=== PATIENT | male | born 1995 ===

== ENCOUNTER 2022-06-04 19:59 | Observation (INO) | payer OTHER ==
[~2022-06-04] VITALS: Ht 185.4 cm; Wt 103.2 kg
[2022-06-04 21:13] LABS: BASO # 0.1 K/mm3 (0.0-0.2); EOS # 0.1 K/mm3 (0.0-0.7); EOS % 1.2 % (0.0-4.0); GRAN # 6.2 K/mm3 (1.4-6.5); GRAN % 64.4 % (42.2-75.2); HEMATOCRIT 43.7 % (42.0-52.0); HEMOGLOBIN 15.4 g/dl (13.5-18.0); LYMPH # 2.6 K/mm3 (1.2-3.4); LYMPH % 27.3 % (20.0-51.0); MEAN CELL VOLUME 85 fl (80.0-100.0); MEAN CORPUSCULAR HEMOGLOBIN 30 pg (27-31); MEAN CORPUSCULAR HGB CONC 35 g/dl (33.0-37.0); MEAN PLATELET VOLUME 11.1 fl (7.4-10.4); MONO # 0.6 K/mm3 (0.1-0.6); MONO % 5.8 % (1.7-9.3); PLATELET COUNT 274 K/mm3 (130-400); RED BLOOD COUNT 5.14 M/mm3 (4.20-5.60); REDCELL DISTRIBUTION WIDTH-CV 11.9 % (11.5-14.5)
[2022-06-04 21:29] LABS: ALBUMIN 4.1 gm/dL (3.5-5.0); BILIRUBIN,TOTAL 0.5 mg/dL (0.2-1.2); CALCIUM 9.8 mg/dL (8.4-10.2); CREATININE, serum 1.05 mg/dL (0.72-1.25); POTASSIUM 4.1 mmol/L (3.5-4.5); TOTAL PROTEIN 7.7 gm/dL (6.2-8.1)
[2022-06-04 23:06] LABS: CSF APPEARANCE CLEAR; CSF COLOR COLORLESS; CSF RBC < 1 /mm3 (0-0)
[2022-06-04 23:08] LABS: GLUCOSE,CSF 60 mg/dL (40-70); TOTAL PROTEIN,CSF 32 mg/dL (15-45)
[2022-06-04 23:30] LABS: CSF MONONUCLEAR 13 % (70-100); CSF POLYMORPHONUCLEAR 87 % (0-6)
[2022-06-04 23:43] LABS: CSF APPEARANCE CLEAR; CSF COLOR COLORLESS; CSF RBC < 1 /mm3 (0-0)
[2022-06-05 00:15] LABS: CSF MONONUCLEAR 16 % (70-100); CSF POLYMORPHONUCLEAR 84 % (0-6)
--- NOTE | 2022-06-05 05:22 | NUR ---
26 yo male admitted for further care and management of sepsis associated with a possible [employer] infection. ht 185.4 cm wt 102.3 kg SCr 1.05 with estimated CrCl >60 ml/min half life 8.9 hours Plan: Will give an initial loading dose of vancomycin 2000 mg x1 (19.6 mg/kg); followed by a maintenance regimen of vancomycin 1500 mg q8h to target a goal trough of 15-25 mcg/ml to allow for adequate [employer] concentrations. Will follow patient's renal function, micro data, and vancomycin levels as inidicated to assess for any necessary changes to regimen. Thank you for this dosing consult.
[2022-06-05 05:39] LABS: BASO % 0.4 % (0.0-2.0); EOS # 0.2 K/mm3 (0.0-0.7); EOS % 1.6 % (0.0-4.0); GRAN # 5.1 K/mm3 (1.4-6.5); GRAN % 55.3 % (42.2-75.2); HEMATOCRIT 40.9 % (42.0-52.0); HEMOGLOBIN 13.8 g/dl (13.5-18.0); LYMPH # 3.2 K/mm3 (1.2-3.4); LYMPH % 34.7 % (20.0-51.0); MEAN CELL VOLUME 89 fl (80.0-100.0); MEAN CORPUSCULAR HEMOGLOBIN 30 pg (27-31); MEAN CORPUSCULAR HGB CONC 34 g/dl (33.0-37.0); MEAN PLATELET VOLUME 11.4 fl (7.4-10.4); MONO # 0.7 K/mm3 (0.1-0.6); MONO % 7.8 % (1.7-9.3); PLATELET COUNT 231 K/mm3 (130-400)
[2022-06-05 05:57] LABS: CALCIUM 8.7 mg/dL (8.4-10.2); CREATININE, serum 0.94 mg/dL (0.72-1.25); POTASSIUM 3.6 mmol/L (3.5-4.5)
[2022-06-05 09:20] VITALS: BP 112/65; PULSE 56; TEMP 98.4
[2022-06-05] MEDS ORDERED: ZYRTEC 10MG10 MG PO (09:26)
[2022-06-05 11:38] VITALS: BP 119/73; PULSE 75; TEMP 98.4
[2022-06-05 16:00] VITALS: BP 122/55; PULSE 69
--- NOTE | 2022-06-05 18:00 | NUR ---
Patient admitted to room 310 from ED. Report recieved from ED RN. ALFONSO. Patient A&O. Pharmacy, Allergies, and medications reviewed. Admission paperwork completed. Patient placed on droplet/contact precautions for viral meningitis.Patient denies any pain, discomfort, SOA, or further needs at this time. Call light in reach.
[2022-06-05 19:56] VITALS: BP 109/55; PULSE 71; TEMP 99.7
[2022-06-06 00:53] VITALS: BP 104/48; PULSE 67; TEMP 98.7
[2022-06-06 03:00] VITALS: BP 116/59; PULSE 61; TEMP 99.4
[2022-06-06 08:00] VITALS: BP 131/80; BP 97/46; PULSE 63; PULSE 74; TEMP 97.8; TEMP 98.6
--- NOTE | 2022-06-06 08:49 | NUR ---
Shift assessment preformed. Scheduled medications given. VSS. Patient A&O. IV in left AC noted to be redenned and tender. IV DC'd, catheter intact. Patient denies any further pain, discomfort, SOA, or further needs at this time. Patient taken down for MRI.
--- NOTE | 2022-06-06 10:46 | NUR ---
The patient is in droplet isolation. SW contacted the patient to discuss discharge plan. The patient lives in [place] with his , Fernando (ph#[phone]). He reports independence with ADLs and does not have any DME. The patient does not have a PCP, but states that he going to start seeing TOMAS Kahn at the end of this month. He receives his medications from [facility]. The patient does not have a DPOA-HC. The patient plans to return home with his upon discharge. No additional needs at this time. *Discharge plan: home with *
[2022-06-06 11:40] LABS: HSV 2 DNA PCR QUAL Not Detected (())
[2022-06-06 12:00] VITALS: BP 123/63; PULSE 66
--- NOTE | 2022-06-06 16:47 | NUR ---
Patient deemd fit for discharge. IV DC'd, catheter intact, no signs of phlebitis. Discharge education/instructions given. All questions answered. VSS. Patient A&O. Patient denies any further pain, discomfort, SOA, or further needs at this time. Patient ambulated from room, escorted by [facility] Staff. Patient transporting self home.
== END 2022-06-06 15:55 | disposition home or self-care (01) ==
LOC: COL.ER 19:59 → MEDICAL 06-05 00:16
PROVIDERS: Emergency Medicine; Student in an Organized Health Care Education/Training Program; ADMIT Internal Medicine
DX: G03.0 Nonpyogenic meningitis (principal); B34.1 Enterovirus infection, unspecified
CPT/HCPCS: A9575; G0378; J0133; J0696; J2765; J3370; J7030; J7050